=== PATIENT | female | born 1950 | race Caucasian/White ===

== ENCOUNTER 2017-08-01 17:00 | Outpatient (RCR) | payer BC ==
[~2017-08-01 17:00] MED LIST: ANTIVERT 25MG25 MG PO; ESTROGEN; VALIUM 5MG T5 MG/TAB PO; ZOFRAN ODT4 MG PO
== END 2017-08-15 | disposition home or self-care (01) ==
LOC: WSPT
DX: M25.562 Pain in left knee (principal); M25.561 Pain in right knee; M54.5 Low back pain

== ENCOUNTER 2017-09-26 15:16 | Observation (INO) | payer BC ==
[~2017-09-26] VITALS: Ht 165.1 cm; Wt 77.6 kg
[2017-09-26] MEDS ORDERED: ESTRACE 1MG1 MG/TAB PO (15:28)
[2017-09-26] MEDS ORDERED: ASPIRIN E.C. 8181 MG PO (15:30)
[2017-09-26 16:13] LABS: BASO # 0.1 (0.0-0.2); BASO % 0.9 % (0.0-2.0); EOS # 0.2 (0.0-0.7); GRAN # 4.2 (1.4-6.5); GRAN % 62.4 % (42.2-75.2); HEMATOCRIT 39.2 % (37.0-47.0); HEMOGLOBIN 13.8 g/dl (12.5-16.0); LYMPH # 1.6 (1.2-3.4); MEAN CELL VOLUME 85 fl (80.0-100.0); MEAN CORPUSCULAR HEMOGLOBIN 30 pg (27.0-31.0); MEAN CORPUSCULAR HGB CONC 35 g/dl (33.0-37.0); MEAN PLATELET VOLUME 9.1 fl (7.4-10.4); MONO # 0.7 (0.1-0.6); MONO % 9.6 % (1.7-9.3); PLATELET COUNT 277 K/mm3 (130-400); RED BLOOD COUNT 4.62 M/mm3 (4.10-5.30); REDCELL DISTRIBUTION WIDTH-CV 12.4 % (11.5-14.5)
[2017-09-26 16:24] LABS: ALANINE AMINOTRANSFERASE 30 U/L (9-52); ALBUMIN 3.8 gm/dL (3.5-5.0); ALKALINE PHOSPHATASE 89 U/L (50-136); ANION GAP 11 mmol/L (7-16); AST,SGOT 24 U/L (15-37); BILIRUBIN,TOTAL 0.3 mg/dL (0.0-1.0); BLOOD UREA NITROGEN 21 mg/dL (7-17); CALCIUM 9.5 mg/dL (8.4-10.2); CARBON DIOXIDE 24 mmol/L (22-30); CHLORIDE 107 mmol/L (98-107); CREATININE, serum 0.67 mg/dL (0.52-1.25); GLUCOSE 99 mg/dL (74-106); LIPASE 163 U/L (23-300); POTASSIUM 3.9 mmol/L (3.4-5.0); SODIUM 141 mmol/L (137-145); TOTAL PROTEIN 7.1 gm/dL (6.4-8.2)
[2017-09-26 16:30] LABS: C-REACTIVE PROTEIN < 0.5 mg/dL (0.0-0.9)
[2017-09-26 16:36] LABS: TROPONIN-I < 0.012 ng/mL (0.000-0.034)
[2017-09-26 18:32] VITALS: BP 139/71; PULSE 66; TEMP 98
[2017-09-26] MEDS ORDERED: TRAVATAN Z 2.52.5 ML OU (18:45)
[2017-09-26 23:04] VITALS: BP 118/68; PULSE 69; TEMP 98.4
[2017-09-27 03:28] VITALS: BP 109/60; PULSE 66; TEMP 98.4
[2017-09-27 06:06] LABS: BASO % 0.4 % (0.0-2.0); EOS % 0.5 % (0-4.0); GRAN % 65.7 % (42.2-75.2); HEMATOCRIT 38.2 % (37.0-47.0); HEMOGLOBIN 13.3 g/dl (12.5-16.0); LYMPH # 1.9 (1.2-3.4); LYMPH % 24.4 % (20.0-51.0); MEAN CELL VOLUME 87 fl (80.0-100.0); MEAN CORPUSCULAR HEMOGLOBIN 30 pg (27.0-31.0); MEAN CORPUSCULAR HGB CONC 35 g/dl (33.0-37.0); MEAN PLATELET VOLUME 9.7 fl (7.4-10.4); MONO # 0.7 (0.1-0.6); MONO % 8.7 % (1.7-9.3); PLATELET COUNT 288 K/mm3 (130-400); RED BLOOD COUNT 4.39 M/mm3 (4.10-5.30); REDCELL DISTRIBUTION WIDTH-CV 12.4 % (11.5-14.5)
[2017-09-27 06:22] LABS: ANION GAP 10 mmol/L (7-16); BLOOD UREA NITROGEN 19 mg/dL (7-17); CALCIUM 9.2 mg/dL (8.4-10.2); CARBON DIOXIDE 24 mmol/L (22-30); CHLORIDE 108 mmol/L (98-107); CHOLESTEROL 180 mg/dL (120-200); CHOLESTEROL RISK RATIO 3.6; CREATININE, serum 0.64 mg/dL (0.52-1.25); GLUCOSE 93 mg/dL (74-106); HDL CHOLESTEROL 49 mg/dL; LDL CHOLESTEROL 115 mg/dL; POTASSIUM 3.9 mmol/L (3.4-5.0); SODIUM 142 mmol/L (137-145); TRIGLYCERIDE 81 mg/dL
[2017-09-27 06:37] LABS: TROPONIN-I < 0.012 ng/mL (0.000-0.034)
[2017-09-27 09:16] VITALS: BP 102/55; PULSE 63; TEMP 98.1
[2017-09-27 13:27] VITALS: BP 119/70; PULSE 73; TEMP 98.1
[2017-09-27 17:32] VITALS: BP 141/73; PULSE 68; TEMP 97.9
[2017-09-27 21:02] VITALS: BP 112/77; PULSE 68; TEMP 98.4
[2017-09-27 21:58] VITALS: BP 112/77; PULSE 68; TEMP 98.4
[2017-09-28] VITALS (30 sets, daily range): BP systolic 84–138; BP diastolic 45–74; PULSE 59–104; TEMP 97.4–98.8
[2017-09-29 01:32] VITALS: BP 107/57; PULSE 59; TEMP 97.9
[2017-09-29 05:02] VITALS: BP 103/47; PULSE 65; TEMP 98.3
[2017-09-29 09:11] VITALS: BP 127/70; PULSE 79; TEMP 97.8
== END 2017-09-29 09:35 | disposition home or self-care (01) ==
LOC: COL.ER 15:16 → SURG 17:09
PROVIDERS: Emergency Medicine; Internal Medicine
DX: R07.9 Chest pain, unspecified (principal); R94.39 Abnormal result of other cardiovascular function study; R79.1 Abnormal coagulation profile; I08.1 Rheumatic disorders of both mitral and tricuspid valves; R53.82 Chronic fatigue, unspecified; G47.00 Insomnia, unspecified; N64.4 Mastodynia; Z79.82 Long term (current) use of aspirin; Z90.710 Acquired absence of both cervix and uterus; Z90.49 Acquired absence of other specified parts of digestive tract; Z86.018 Personal history of other benign neoplasm; Z82.49 Family history of ischemic heart disease and other diseases of the circulatory system
CPT/HCPCS: A9502; G0378; J1644; J1720; J2250; J2785; J3010; Q9967

== ENCOUNTER → 2017-11-02 | Outpatient (CLI) | payer BC ==
[~2017-11-02] MED LIST changes: +ASPIRIN E.C. 8181 MG PO; +ESTRACE 1MG1 MG/TAB PO; +TRAVATAN Z 2.52.5 ML OU
== END ==
LOC: MC.RAD 11:37
DX: Z12.31 Encounter for screening mammogram for malignant neoplasm of breast (principal); N64.4 Mastodynia

== ENCOUNTER → 2018-10-25 | Outpatient (CLI) | payer MEDICARE, OTHER | LOC: COL.RAD 12:55 | DX: M16.11 Unilateral primary osteoarthritis, right hip (principal) | CPT/HCPCS: J3301; Q9967 ==

== ENCOUNTER → 2020-04-23 | Outpatient (CLI) | payer MEDICARE, OTHER | LOC: COL.RAD 08:58 | DX: M25.551 Pain in right hip (principal) | CPT/HCPCS: J3301; Q9967 ==

== ENCOUNTER → 2020-05-15 | Outpatient (CLI) | payer MEDICARE, OTHER | END | disposition still patient (30) | LOC: MC.RAD 08:00 | DX: Z12.31 Encounter for screening mammogram for malignant neoplasm of breast (principal) ==

== ENCOUNTER 2021-02-09 17:49 | Emergency (ER) | payer MEDICARE, OTHER ==
[~2021-02-09] VITALS: Ht 165.1 cm; Wt 75.9 kg
[2021-02-09 22:05] LABS: GRAN # 1.4 (1.4-6.5); HEMATOCRIT 37.1 % (37.0-47.0); HEMOGLOBIN 12.9 g/dl (12.5-16.0); LYMPH # 0.7 (1.2-3.4); LYMPH % 29.8 % (20.0-51.0); MEAN CELL VOLUME 85 fl (80.0-100.0); MEAN CORPUSCULAR HEMOGLOBIN 30 pg (27.0-31.0); MEAN CORPUSCULAR HGB CONC 35 g/dl (33.0-37.0); MONO # 0.3 (0.1-0.6); MONO % 11.2 % (1.7-9.3); PLATELET COUNT 101 K/mm3 (130-400); RED BLOOD COUNT 4.38 M/mm3 (4.10-5.30); REDCELL DISTRIBUTION WIDTH-CV 13.2 % (11.5-14.5)
[2021-02-09 22:21] LABS: ALANINE AMINOTRANSFERASE 46 U/L (4-34); ALBUMIN 3.6 gm/dL (3.5-5.0); ALKALINE PHOSPHATASE 69 U/L (50-136); ANION GAP 7 mmol/L (7-16); AST,SGOT 65 U/L (15-37); BILIRUBIN,TOTAL 0.4 mg/dL (0.0-1.0); BLOOD UREA NITROGEN 12 mg/dL (7-17); C-REACTIVE PROTEIN 1.4 mg/dL (0.0-0.9); CALCIUM 8.5 mg/dL (8.4-10.2); CARBON DIOXIDE 27 mmol/L (22-30); CHLORIDE 102 mmol/L (98-107); CREATININE, serum 0.53 (0.52-1.25); GLUCOSE 99 mg/dL (74-106); POTASSIUM 3.5 mmol/L (3.4-5.0); SODIUM 136 mmol/L (137-145); TOTAL PROTEIN 6.4 gm/dL (6.4-8.2)
[2021-02-09 22:42] LABS: TROPONIN-I < 0.012 ng/mL (0.000-0.035)
[2021-02-10] MEDS ORDERED: ZOFRAN ODT4 MG PO (03:18)
[2021-02-10 03:36] VITALS: BP 114/78; PULSE 91; TEMP 98.9
== END 2021-02-10 03:30 | disposition home or self-care (01) ==
LOC: COL.ER 17:49
PROVIDERS: Nurse Practitioner
DX: U07.1 COVID-19 (principal)
CPT/HCPCS: J2405; J7030; Q0244; Q9967

== ENCOUNTER → 2021-05-19 | Outpatient (CLI) | payer MEDICARE, OTHER | LOC: MC.RAD 09:41 | DX: Z12.31 Encounter for screening mammogram for malignant neoplasm of breast (principal) ==